=== PATIENT | male | born 1975 | race Caucasian/White ===

== ENCOUNTER 2018-09-10 18:26 | Emergency (ER) | payer BC ==
[~2018-09-10] VITALS: Ht 188 cm; Wt 82.0 kg
[2018-09-10] MEDS ORDERED: TETANUS, DIPHTHERIA, PERTUSSIS VAC/PF 0.5ML (>7YR OLD) IM ONE (19:45)
[2018-09-10] MEDS ORDERED: TRAMADOL 50MG TABLET PO ONE (20:00)
[2018-09-10 20:38] VITALS: BP 128/81
== END 2018-09-10 20:39 | disposition home or self-care (01) ==
LOC: ER 19:37
DX: S61.251A Open bite of left index finger without damage to nail, initial encounter (principal); F12.10 Cannabis abuse, uncomplicated; W54.0XXA Bitten by dog, initial encounter; Y93.89 Activity, other specified; Y92.89 Other specified places as the place of occurrence of the external cause; Y99.8 Other external cause status; Z98.890 Other specified postprocedural states
CPT/HCPCS: 90471; 90715; 99283; Z7610

== ENCOUNTER 2022-06-27 22:24 | Emergency (ER) | payer BC ==
[~2022-06-27] VITALS: Ht 188 cm; Wt 88.0 kg
[2022-06-27 22:34] VITALS: BP 124/82
[2022-06-28] MEDS ORDERED: IBUPROFEN 600MG TABLET PO ONE
[2022-06-28] MEDS ORDERED: IBUP-2029 PO (00:46)
[2022-06-28] MEDS ORDERED: LIDO700A15 TP (00:46)
== END 2022-06-28 01:16 | disposition home or self-care (01) ==
LOC: ER 22:24
DX: L05.91 Pilonidal cyst without abscess (principal); I10 Essential (primary) hypertension; Z98.890 Other specified postprocedural states
CPT/HCPCS: 99282